=== PATIENT | male | born 1955 | race Caucasian/White ===

== ENCOUNTER 2017-03-07 17:32 | Emergency (ER) | payer OTHER ==
[~2017-03-07] VITALS: Ht 185.4 cm; Wt 89.5 kg
[2017-03-07] MEDS ORDERED: OXYCODONE-APAP1 EACH PO (18:19)
[2017-03-07] MEDS ORDERED: ESOMEPRAZOLE MA40 MG PO (18:20)
[2017-03-07 22:42] VITALS: BP 131/88
[2017-03-11] MEDS ORDERED: DEXILANT60 MG PO (11:09)
[2017-03-11] MEDS ORDERED: ARTHROTEC 751 TABLET PO (11:09)
[2017-03-11] MEDS ORDERED: CYCLOBENZAPRINE10 MG PO (11:09)
[2017-03-11] MEDS ORDERED: ONDANSETRON HCL4 MG PO (11:10)
[2017-03-11] MEDS ORDERED: IMITREX100 MG PO (11:10)
[2017-03-11] MEDS ORDERED: BENICAR20 MG PO (11:10)
[2017-03-11] MEDS ORDERED: AZELASTINE HCL6 ML BOTH EYES (11:11)
[2017-03-11] MEDS ORDERED: FLONASE16 G1 BOTH NARES (11:11)
[2017-03-12] MEDS ORDERED: ATARAX,VISTARIL25 MG PO (10:31)
== END 2017-03-07 22:45 | disposition home or self-care (01) ==
LOC: EME 17:32
DX: R10.13 Epigastric pain (principal); R17 Unspecified jaundice
CPT/HCPCS: 74177; 99281; 99284; J7030

== ENCOUNTER → 2017-03-13 | Outpatient (CLI) | payer OTHER ==
[~2017-03-13] VITALS: Ht 182.9 cm; Wt 89.5 kg
[~2017-03-13] MED LIST: ARTHROTEC 751 TABLET PO; ATARAX,VISTARIL25 MG PO; AZELASTINE HCL6 ML BOTH EYES; BENICAR20 MG PO; CYCLOBENZAPRINE10 MG PO; DEXILANT60 MG PO; ESOMEPRAZOLE MA40 MG PO; FLONASE16 G1 BOTH NARES; IMITREX100 MG PO; ONDANSETRON HCL4 MG PO; OXYCODONE-APAP1 EACH PO
== END | disposition home or self-care (01) ==
LOC: AMB 09:45
DX: K80.43 Calculus of bile duct with acute cholecystitis with obstruction (principal); L29.9 Pruritus, unspecified; R63.4 Abnormal weight loss; F41.9 Anxiety disorder, unspecified; K21.9 Gastro-esophageal reflux disease without esophagitis; E80.6 Other disorders of bilirubin metabolism; E78.5 Hyperlipidemia, unspecified; I10 Essential (primary) hypertension
CPT/HCPCS: 74328; 87081; 87186; C1726; C1757; C1769; J0330; J1100; J2405; J3010